=== PATIENT | male | born 1940 | race Caucasian/White ===

== ENCOUNTER 2017-03-08 10:14 | Emergency (ER) | payer MEDICARE, OTHER ==
[2017-03-08] MEDS ORDERED: TETANUS/DIPHTHERIA/PERTUSSIS 0.5 ML SYRINGE IM ONE ×2 (10:58→11:15)
--- NOTE | 2017-03-08 12:06 | XRAY Report ---
EXAM: RIGHT FOOT RADIOGRAPHY EXAM DATE: 03/08/2017 11:40 AM. CLINICAL HISTORY: Soft tissue injury. COMPARISON: None. TECHNIQUE: 3 views. FINDINGS: Bones: No fractures or bony destructive lesions. There are 4 screws in the distal fibula, unremarkab le. 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 No subluxations. Soft Tissues: In the lateral view, there is distal plantar foot soft tissue swelling. There is a smal l calcified dense focus abutting the plantar portion of the fifth metatarsal head, 2 mm; otherwise, n o soft tissue radiopaque foreign body or soft tissue swelling. IMPRESSION: 1. Distal plantar foot soft tissue swelling and a small calcified dense focus abutting the plantar po rtion of the fifth metatarsal head, 2 mm, probably a degenerative calcification; however, a small for eign body cannot be excluded, clinical correlation is recommended. 2. Otherwise, negative for soft tissue radiopaque foreign body or bony injury in the right foot radio graphy. [facility] Referring Provider Line: [phone] SITE ID: [id number]
--- NOTE | 2017-03-08 12:21 | ED Physician Documentation ---
History of Present Illness - Stated complaint Stated Complaint: RT FOOT PX - Chief complaint Chief Complaint: Ext Problem - History obtained from History obtained from: Patient - History of Present Illness Timing: How many days ago (several) Pain level max: 5 Pain level now: 4 - Additonal information Additional information: Patient is a 76-year-old gentleman who presents to the emergency department with 2-3 days worth of pain near the base of the second toe on the plantar aspect of the foot. Worse with walking, better with rest. Doesn't recall an injury Review of Systems Constitutional: denies: Fever, Chills Skin: denies: Rash Neurologic: denies: Focal weakness, Numbness PD PAST MEDICAL HISTORY - Past Medical History Cardiovascular: Hypertension HEENT: Other Musculoskeletal: Gout - Past Surgical History Past Surgical History: Yes Ortho: Arthroscopic surgery HEENT: Cataracts, Detached retina repair - Present Medications Home Medications: Ambulatory Orders Medication Instructions Recorded Confirmed Triamterene/Hydrochlorothiazid 1 each PO DAILY 04/18/13 03/08/17 [Triamterene-Hctz 37.5-25 mg Tb] Doxazosin [Cardura] 8 mg PO DAILY 03/27/14 03/08/17 Allopurinol 300 mg PO DAILY 03/08/17 03/08/17 Sulfamethox/Trimeth 800/160 1 each PO BID #14 tablet 03/08/17 [Bactrim Ds 800/160] - Allergies Allergies/Adverse Reactions: Allergies Allergy/AdvReac Type Severity Reaction Status Date / Time ciprofloxacin [From Cipro] Allergy Intermediate Edema Verified 03/08/17 10:30 ciprofloxacin HCl * Allergy Intermediate Edema Verified 03/08/17 10:30 [From Cipro] erythromycin lactobionate * Allergy Mild Emesis Verified 03/08/17 10:30 [From Erythrocin] lisinopril Allergy Edema Verified 03/08/17 10:30 - Social History Does the pt smoke?: No Smoking Status: Never smoker Does the pt drink ETOH?: No Does the pt have substance abuse?: No - Immunizations Immunizations are current?: Yes - POLST Patient has POLST: No PD ED PE NORMAL - Vitals Vital signs reviewed: Yes - General General: Alert and oriented X 3, No acute distress - HEENT HEENT: Moist mucous membranes - Derm Derm: Warm and dry - Extremities Extremities: Other (R foot - TTP 2nd MT head, plantar aspect. No FB visible, small puncture wound. 1x1cm erythema, swelling, no drainage. NVI) Results - Vitals Vitals: Vital Signs - 24 hr 03/08/17 03/08/17 10:27 12:44 Temperature 36.6 C 36.3 C L Heart Rate 63 66 Respiratory 18 18 Rate Blood Pressure 159/85 H 139/90 H O2 Saturation 97 97 Oxygen O2 Source Room air - Rads (name of study) R foot xray Radiology: Prelim report reviewed, EMP read contemporaneously, See rad report ( Distal plantar foot soft tissue swelling and a small calcified dense focus abutting the plantar portion of the fifth metatarsal head, 2 mm, probably a degenerative calcification; however, a small foreign body cannot be excluded, clinical correlation is recommended. 2. Otherwise, negative for soft tissue radiopaque foreign body or bony injury in the right foot radiography. ) PD MEDICAL DECISION MAKING - ED course Complexity details: reviewed results, re-evaluated patient, considered differential, d/w patient ED course: Patient is a 76-year-old male who presents to the emergency department with what appears to be slight cellulitis to the plantar aspect of the foot, near the base of the second toe. No visible foreign body, though does appear to have a small puncture wound. No drainage. No foreign body visible on x-ray. Will trial on antibiotics and close follow-up with his PCP. Will also have him soak the foot twice daily in warm water. Patient will return if he worsens. Patient counseled regarding signs and symptoms for which I believe and urgent re -evaluation would be necessary. Patient with good understanding of and agreement to plan and is comfortable going home at this time This document was made in part using voice recognition software. While efforts are made to proofread this document, sound alike and grammatical errors may occur. Departure - Departure Disposition: 01 Home, Self Care Clinical Impression: Cellulitis Qualifiers: Site of cellulitis: extremity Site of cellulitis of extremity: lower extremity Laterality: right Qualified Code(s): L03.115 - Cellulitis of right lower limb Condition: Good Instructions: ED Infec Skin Cellulitis Follow-Up: Oleg Hogan MD [Primary Care Provider] - Within 1 week Prescriptions: Sulfamethox/Trimeth 800/160 [Bactrim Ds 800/160] 1 each PO BID #14 tablet Comments: Return if you worsen. Take all antibiotics until gone. Soak the area in warm water 2-3 times daily. There is no foreign body on exam or xray today. Your blood pressure was elevated today on check in to the emergency department. This does not mean that you have hypertension, it is a common phenomenon to check into the emergency department and have elevated blood pressure. I recommend that you see your primary care physician within the week to have it rechecked when you're feeling better. Discharge Date/Time: 03/08/17 12:40
[2017-03-08 12:45] VITALS: BP 139/90
== END 2017-03-08 12:40 | disposition home or self-care (01) ==
LOC: ED 10:14
DX: L03.115 Cellulitis of right lower limb (principal); I10 Essential (primary) hypertension; M10.9 Gout, unspecified; Z23 Encounter for immunization
CPT/HCPCS: 90471; 99283

== ENCOUNTER 2017-05-25 16:42 | Emergency (ER) | payer MEDICARE, BC ==
[2017-05-25 16:52] VITALS: BP 169/97
[2017-05-25] MEDS ORDERED: HYDROcod/ACETAM 5/325 MG TABLET PO STA (17:21)
[2017-05-25] MEDS ORDERED: HYDROcod/ACETAM 5/325 MG TABLET ONE (17:28)
--- NOTE | 2017-05-25 17:48 | ED Physician Documentation ---
History of Present Illness - Stated complaint Stated Complaint: BACK/NECK PX - Chief complaint Chief Complaint: Back Pain - History obtained from History obtained from: Patient (Pt states that over the past 1-2 days he has had left upper back pain. No fevers, no trauma, worse with movement of his neck , does have some tingling to his upper left arm.) Review of Systems Constitutional: denies: Fever, Chills Ears: denies: Ear pain, Tinnitus/ringing Nose: denies: Congestion, Sinus pressure / pain Throat: denies: Sore throat Cardiac: denies: Chest pain / pressure, Palpitations Respiratory: denies: Dyspnea, Cough, Hemoptysis, Wheezing GI: denies: Nausea, Vomiting, Constipation, Diarrhea Skin: denies: Rash, Lesions Musculoskeletal: reports: Neck pain, Back pain, Other (tingling left upper arm) . denies: Extremity pain Neurologic: reports: Numbness. denies: Headache, LOC PD PAST MEDICAL HISTORY - Past Medical History Past Medical History: Yes Cardiovascular: Hypertension, High cholesterol HEENT: Other Musculoskeletal: Gout - Past Surgical History Past Surgical History: Yes Ortho: Arthroscopic surgery HEENT: Cataracts, Detached retina repair - Present Medications Home Medications: Ambulatory Orders Medication Instructions Recorded Confirmed Triamterene/Hydrochlorothiazid 1 each PO DAILY 04/18/13 05/25/17 [Triamterene-Hctz 37.5-25 mg Tb] Doxazosin [Cardura] 8 mg PO DAILY 03/27/14 05/25/17 Allopurinol 300 mg PO DAILY 03/08/17 05/25/17 Sulfamethox/Trimeth 800/160 1 each PO BID #14 tablet 03/08/17 05/25/17 [Bactrim Ds 800/160] Cyclobenzaprine [Flexeril] 10 mg PO TID PRN #20 tablet 05/25/17 Meloxicam [Mobic] 7.5 mg PO DAILY #30 tablet 05/25/17 Pravastatin Sodium 10 mg PO DAILY 05/25/17 05/25/17 - Allergies Allergies/Adverse Reactions: Allergies Allergy/AdvReac Type Severity Reaction Status Date / Time ciprofloxacin [From Cipro] Allergy Intermediate Edema Verified 03/08/17 10:30 ciprofloxacin HCl * Allergy Intermediate Edema Verified 03/08/17 10:30 [From Cipro] erythromycin lactobionate * Allergy Mild Emesis Verified 03/08/17 10:30 [From Erythrocin] lisinopril Allergy Edema Verified 03/08/17 10:30 - Social History Does the pt smoke?: No Smoking Status: Never smoker Does the pt drink ETOH?: No Does the pt have substance abuse?: No - Immunizations Immunizations are current?: Yes - POLST Patient has POLST: No PD ED PE NORMAL - Vitals Vital signs reviewed: Yes - General General: Alert and oriented X 3, No acute distress, Well developed/nourished - HEENT HEENT: Atraumatic, Moist mucous membranes - Neck Neck: Supple, no meningeal sign, No bony TTP, Other (+ sperlings to the left) - Cardiac Cardiac: RRR, No murmur - Respiratory Respiratory: No respiratory distress, Clear bilaterally - Derm Derm: Normal color, No rash - Extremities Extremities: Other (full ROM of left shoulder. ROM of left shoulder does not reporduce the pain. No TTP of left trap or rhomboids ) - Neuro Neuro: Alert and oriented X 3, No sensory deficit (left LE) Eye Opening: Spontaneous Motor: Obeys Commands Verbal: Oriented GCS Score: 15 - Psych Psych: Normal mood, Normal affect Results - Vitals Vitals: Vital Signs - 24 hr 05/25/17 16:46 Temperature 36.4 C L Heart Rate 71 Respiratory 17 Rate Blood Pressure 169/97 H O2 Saturation 97 Oxygen O2 Source Room air PD MEDICAL DECISION MAKING - ED course ED course: Pt with pos spurling maneuver. suspect cervical nerve impingement. discussed this with the pt. gave care instructions and return precautions. Doubt ACS. Departure - Departure Disposition: 01 Home, Self Care Clinical Impression: Cervical nerve root impingement Condition: Good Instructions: Neck Cervical Spine, Radiculopathy Cervical Follow-Up: Oleg Hogan MD [Primary Care Provider] - Prescriptions: Cyclobenzaprine [Flexeril] 10 mg PO TID PRN #20 tablet PRN Reason: Spasms Meloxicam [Mobic] 7.5 mg PO DAILY #30 tablet
== END 2017-05-25 18:01 | disposition home or self-care (01) ==
LOC: ED 16:42
DX: G56.80 Other specified mononeuropathies of unspecified upper limb (principal)
CPT/HCPCS: 99283; A9270

== ENCOUNTER 2018-10-10 11:16 | Emergency (ER) | payer MEDICARE, BC ==
[2018-10-10 11:23] VITALS: BP 142/72
--- NOTE | 2018-10-10 12:32 | ED Physician Documentation ---
History of Present Illness - Stated complaint Stated Complaint: TOE PAIN - Chief complaint Chief Complaint: Trauma Ext - History obtained from History obtained from: Patient - History of Present Illness Timing: How many days ago (2) Pain level max: 5 Pain level now: 3 - Additonal information Additional information: 78-year-old male with right toenail pain on the little toe along with bleeding for the past few days. Does not recall any injury. No fevers. Mild redness. Worse with palpation better with rest. Review of Systems Constitutional: denies: Fever, Chills Nose: denies: Rhinorrhea / runny nose, Congestion Respiratory: denies: Cough Skin: denies: Rash Musculoskeletal: denies: Neck pain, Back pain Neurologic: denies: Headache PD PAST MEDICAL HISTORY - Past Medical History Cardiovascular: Hypertension, High cholesterol HEENT: Other Musculoskeletal: Gout - Past Surgical History Past Surgical History: Yes Ortho: Arthroscopic surgery HEENT: Cataracts, Detached retina repair - Present Medications Home Medications: Ambulatory Orders Medication Instructions Recorded Confirmed Triamterene/Hydrochlorothiazid 1 each PO DAILY 04/18/13 05/25/17 [Triamterene-Hctz 37.5-25 mg Tb] Doxazosin [Cardura] 8 mg PO DAILY 03/27/14 05/25/17 Allopurinol 300 mg PO DAILY 03/08/17 05/25/17 Sulfamethox/Trimeth 800/160 1 each PO BID #14 tablet 03/08/17 05/25/17 [Bactrim Ds 800/160] Cyclobenzaprine [Flexeril] 10 mg PO TID PRN #20 tablet 05/25/17 Meloxicam [Mobic] 7.5 mg PO DAILY #30 tablet 05/25/17 Pravastatin Sodium 10 mg PO DAILY 05/25/17 05/25/17 Cephalexin [Keflex] 500 mg PO Q6H #28 capsule 10/10/18 Sulfamethox/Trimeth 800/160 1 each PO BID #14 tablet 10/10/18 [Bactrim Ds 800/160] - Allergies Allergies/Adverse Reactions: Allergies Allergy/AdvReac Type Severity Reaction Status Date / Time ciprofloxacin [From Cipro] Allergy Intermediate Edema Verified 10/10/18 11:24 ciprofloxacin HCl * Allergy Intermediate Edema Verified 10/10/18 11:24 [From Cipro] erythromycin lactobionate * Allergy Mild Emesis Verified 10/10/18 11:24 [From Erythrocin] lisinopril Allergy Edema Verified 10/10/18 11:24 - Social History Does the pt smoke?: No Smoking Status: Never smoker Does the pt drink ETOH?: No Does the pt have substance abuse?: No - Immunizations Immunizations are current?: Yes - POLST Patient has POLST: No PD ED PE NORMAL - Vitals Vital signs reviewed: Yes - General General: Alert and oriented X 3, No acute distress - Derm Derm: Warm and dry - Extremities Extremities: Other (Partially avulsed right fifth toenail. No active bleeding. Mild surrounding erythema going up the toe. No drainable abscess. Neur ovascular intact.) - Neuro Neuro: Alert and oriented X 3 Results - Vitals Vitals: Vital Signs - 24 hr 10/10/18 11:22 Temperature 37.0 C Heart Rate 74 Respiratory 18 Rate Blood Pressure 142/72 H O2 Saturation 96 Oxygen O2 Source Room air PD MEDICAL DECISION MAKING - ED course Complexity details: considered differential, d/w patient ED course: 78-year-old male with mild cellulitis of the right fifth toe as well as a partially avulsed toenail. He will trim the toenail at home and keep an eye on it. Prefers not to remove the toenail at this time. Will place on antibiotics. Patient counseled regarding signs and symptoms for which I believe and urgent re-evaluation would be necessary. Patient with good understanding of and agreement to plan and is comfortable going home at this time This document was made in part using voice recognition software. While efforts are made to proofread this document, sound alike and grammatical errors may occur. Departure - Departure Disposition: 01 Home, Self Care Clinical Impression: Avulsion of toenail of right foot Cellulitis Qualifiers: Site of cellulitis: extremity Site of cellulitis of extremity: toe Laterality: right Qualified Code(s): L03.031 - Cellulitis of right toe Condition: Good Instructions: ED Avulsion Nail Complete, ED Infec Skin Cellulitis Follow-Up: Oleg Hogan MD [Primary Care Provider] - Within 1 week Prescriptions: Cephalexin [Keflex] 500 mg PO Q6H #28 capsule Sulfamethox/Trimeth 800/160 [Bactrim Ds 800/160] 1 each PO BID #14 tablet Comments: Return if you worsen. This should improve over the next few days. Carefully trim your toenail when you get home. You may want to keep it covered as well.
== END 2018-10-10 12:39 | disposition home or self-care (01) ==
LOC: ED 11:16
DX: S91.214A Laceration without foreign body of right lesser toe(s) with damage to nail, initial encounter (principal); X58.XXXA Exposure to other specified factors, initial encounter; L03.031 Cellulitis of right toe; I10 Essential (primary) hypertension; E78.00 Pure hypercholesterolemia, unspecified
CPT/HCPCS: 99283

== ENCOUNTER 2018-10-16 05:50 | Emergency (ER) | payer MEDICARE, BC ==
[2018-10-16 06:47] LABS: BASOPHILS # (AUTO) 0.1 10^3/uL (0.0-0.1); BASOPHILS % (AUTO) 1.1 %; EOSINOPHILS # (AUTO) 0.6 10^3/uL (0.0-0.7); HGB - HEMOGLOBIN 14.9 g/dL (14.0-18.0); LYMPHOCYTES # (AUTO) 1.5 10^3/uL (1.5-3.5); MEAN CORPUSCULAR HEMOGLOBIN 31.2 pg (27.0-31.0); MEAN CORPUSCULAR HGB CONC 33.9 g/dL (32.0-36.0); MEAN CORPUSCULAR VOLUME 92.1 fL (80.0-94.0); MEAN PLATELET VOLUME 7.5 fL (7.4-11.4); MONOCYTES # (AUTO) 0.4 10^3/uL (0.0-1.0); MONOCYTES % (AUTO) 4.3 %; NEUTROPHILS # (AUTO) 6.8 10^3/uL (1.5-6.6); NEUTROPHILS % (AUTO) 72.6 %; PLT - PLATELET COUNT 214 10^3/uL (130-450); RED BLOOD COUNT 4.78 10^6/uL (4.70-6.10); RED CELL DISTRIBUTION WIDTH 14.3 % (12.0-15.0); WHITE BLOOD COUNT 9.4 x10^3/uL (4.8-10.8)
[2018-10-16 06:54] LABS: ALBUMIN 4.2 g/dL (3.2-5.5); ALBUMIN/GLOBULIN RATIO 1.5 (1.0-2.2); BILIRUBIN,TOTAL 0.9 mg/dL (0.2-1.0); CALCIUM 9.2 mg/dL (8.5-10.3); CREATININE 1.4 mg/dL (0.6-1.2)
--- NOTE | 2018-10-16 07:29 | ED Physician Documentation ---
PD HPI ABD PAIN - Stated complaint Stated Complaint: ABD PX - Chief complaint Chief Complaint: Abd Pain - History obtained from History obtained from: Patient - History of Present Illness Timing - onset: Last night Timing - duration: Hours Timing - details: Gradual onset Quality: Pain Location: Periumbilical Radiation: Other (does not radiate) Improved by: Other (no ameliorating factors) Worsened by: Other (no exacerbating factors) Associated symptoms: No: Fever, Nausea, Vomiting, Diarrhea, Constipation Similar symptoms before: Diagnosis (feels similar to abdominal discomfort he had when taking erythromycin) Review of Systems Constitutional: reports: Reviewed and negative Cardiac: reports: Reviewed and negative Respiratory: reports: Reviewed and negative GI: reports: Abdominal Pain. denies: Nausea, Vomiting, Constipation, Diarrhea PD PAST MEDICAL HISTORY - Past Medical History Past Medical History: Yes Cardiovascular: Hypertension, High cholesterol HEENT: Other Musculoskeletal: Gout - Past Surgical History Past Surgical History: Yes Ortho: Arthroscopic surgery HEENT: Cataracts, Detached retina repair - Present Medications Home Medications: Ambulatory Orders Medication Instructions Recorded Confirmed Triamterene/Hydrochlorothiazid 1 each PO DAILY 04/18/13 05/25/17 [Triamterene-Hctz 37.5-25 mg Tb] Doxazosin [Cardura] 8 mg PO DAILY 03/27/14 05/25/17 Allopurinol 300 mg PO DAILY 03/08/17 05/25/17 Sulfamethox/Trimeth 800/160 1 each PO BID #14 tablet 03/08/17 05/25/17 [Bactrim Ds 800/160] Cyclobenzaprine [Flexeril] 10 mg PO TID PRN #20 tablet 05/25/17 Meloxicam [Mobic] 7.5 mg PO DAILY #30 tablet 05/25/17 Pravastatin Sodium 10 mg PO DAILY 05/25/17 05/25/17 Cephalexin [Keflex] 500 mg PO Q6H #28 capsule 10/10/18 Sulfamethox/Trimeth 800/160 1 each PO BID #14 tablet 10/10/18 [Bactrim Ds 800/160] - Allergies Allergies/Adverse Reactions: Allergies Allergy/AdvReac Type Severity Reaction Status Date / Time ciprofloxacin [From Cipro] Allergy Intermediate Edema Verified 10/10/18 11:24 ciprofloxacin HCl * Allergy Intermediate Edema Verified 10/10/18 11:24 [From Cipro] erythromycin lactobionate * Allergy Mild Emesis Verified 10/10/18 11:24 [From Erythrocin] lisinopril Allergy Edema Verified 10/10/18 11:24 - Social History Does the pt smoke?: No Smoking Status: Former smoker Does the pt drink ETOH?: No Does the pt have substance abuse?: No - Immunizations Immunizations are current?: Yes - POLST Patient has POLST: No PD ED PE NORMAL - Vitals Vital signs reviewed: Yes - General General: Alert and oriented X 3, No acute distress, Well developed/nourished - HEENT HEENT: Moist mucous membranes - Cardiac Cardiac: RRR, No murmur - Respiratory Respiratory: No respiratory distress, Clear bilaterally - Abdomen Abdomen: Normal bowel sounds, Soft, Non tender, Non distended - Back Back: No CVA TTP - Derm Derm: Normal color, Warm and dry, No rash - Extremities Extremities: No edema Results - Vitals Vitals: Oxygen O2 Source Room air - Labs Labs: Laboratory Tests 10/16/18 10/16/18 06:42 06:42 WBC 9.4 RBC 4.78 Hgb 14.9 Hct 44.0 MCV 92.1 MCH 31.2 H MCHC 33.9 RDW 14.3 Plt Count 214 MPV 7.5 Neut # (Auto) 6.8 H Lymph # (Auto) 1.5 [place] # (Auto) 0.4 Eos # (Auto) 0.6 Baso # (Auto) 0.1 Absolute Nucleated RBC 0.01 Nucleated RBC % 0.1 Sodium 137 Potassium 3.8 Chloride 100 L Carbon Dioxide 27 Anion Gap 10.0 BUN 28 H Creatinine 1.4 H Estimated GFR (MDRD) 49 L Glucose 126 H Calcium 9.2 Total Bilirubin 0.9 AST 19 ALT 19 Alkaline Phosphatase 90 Total Protein 7.0 Albumin 4.2 Globulin 2.8 Albumin/Globulin Ratio 1.5 Lipase 36 PD MEDICAL DECISION MAKING - ED course Complexity details: reviewed results, re-evaluated patient, considered differential, d/w patient, d/w family ED course: On reevaluation, after Tests resulted, patient reports his symptoms have resolved. His toe appears normal, and patient reports that it feels completely normal to him. Because he feels strongly that the symptoms of his abdominal discomfort are similar to several years ago when they were attributed to side effect of erythromycin, and considering that his toe appears to have completely healed, it was mutually agreed that he can stop the antibiotics that were prescribed on the previous ER visit. also considered in differential diagnoses is biliary colic (US not performed at this time, as it would not change immediate management: symptoms resolved, unremarkable LFTs, afebrile, nontender), PUD/gastritis, intestinal ischemia, constipation, osbstruction. We discussed his abnormal bun/creatinine. No previous for comparison on [facility] records, but the levels are mildly elevated and thus can be compared to baseline by his PMd (had recent outpatient blood tests) and retesting as deemed appropriate. Departure - Departure Disposition: 01 Home, Self Care Clinical Impression: Abdominal pain Condition: Good Instructions: ED Abdominal Pain Unkn Cause Male Follow-Up: ELISEO CLEMONS MD [Primary Care Provider] - Comments: Your kidney function tests were abnormal on today's blood tests. I do not have any previous results for comparison, but the results are mildly elevated and do not need to be further investigated at this time. Contact your primary care physician to discuss these results and they can compare to your recent blood work and then advise whether further testing is needed. Discharge Date/Time: 10/16/18 08:06
[2018-10-16 08:03] VITALS: BP 140/70
== END 2018-10-16 08:06 | disposition home or self-care (01) ==
LOC: ED 05:50
DX: R10.9 Unspecified abdominal pain (principal); I10 Essential (primary) hypertension; Z87.891 Personal history of nicotine dependence
CPT/HCPCS: 36415; 80053; 83690; 85025; 99283

== ENCOUNTER 2020-07-09 02:18 | Emergency (ER) | payer MEDICARE, BC ==
[2020-07-09] MEDS ORDERED: diphenhydrAMINE 25 MG CAPSULE PO STA (02:50)
[2020-07-09] MEDS ORDERED: predniSONE 20 MG TABLET PO STA (02:50)
--- NOTE | 2020-07-09 02:53 | ED Physician Documentation ---
History of Present Illness - Stated complaint Stated Complaint: BILAT EYE SWELLING - Chief complaint Chief Complaint: Heent - History obtained from History obtained from: Patient - Additonal information Additional information: Emergency department chief complaint of swelling around bilateral eyes for the last few days. Patient states it started with a burning sensation around both of his eyes and some mild swelling. Patient states this is happened to him before, though he is not sure what causes it, and that it always goes down on its own. However, the patient states that the symptoms have grown steadily worse over the last few days. He states he has not had any symptoms anywhere elseonly around his eyes. He denies any swelling of his tongue or lips. No airway tightness or swelling. No difficulty breathing. No rash on his skin. Patient states he has chronic mild eczema on his bilateral upper eyelids, but that this is generally well controlled. Patient denies any other complaints at this time. He states he did take 25 mg of Benadryl several hours ago, but this does not seem to have done any good. Patient denies any exposure to anything new. He denies any new lotions, soaps, or other products on his face. No recent yardwork. No exposure to any new pets. No new foods or medications. Patient states he has been working in his wood shop, but states this is not unusual for him. Review of Systems Ten Systems: 10 systems reviewed and negative Constitutional: reports: Reviewed and negative Eyes: reports: Other (Edema.) Ears: reports: Reviewed and negative Nose: reports: Reviewed and negative Throat: reports: Reviewed and negative Cardiac: reports: Reviewed and negative Respiratory: reports: Reviewed and negative GI: reports: Reviewed and negative : reports: Reviewed and negative Skin: reports: Reviewed and negative Musculoskeletal: reports: Reviewed and negative Neurologic: reports: Reviewed and negative Psychiatric: reports: Reviewed and negative Endocrine: reports: Reviewed and negative Immunocompromised: reports: Reviewed and negative PD PAST MEDICAL HISTORY - Past Medical History Past Medical History: Yes Cardiovascular: Hypertension, High cholesterol HEENT: Other Musculoskeletal: Gout - Past Surgical History Past Surgical History: Yes Ortho: Arthroscopic surgery HEENT: Cataracts, Detached retina repair - Present Medications Home Medications: Ambulatory Orders Medication Instructions Recorded Confirmed Triamterene/Hydrochlorothiazid 1 each PO DAILY 04/18/13 07/09/20 [Triamterene-Hctz 37.5-25 mg Tb] Doxazosin [Cardura] 8 mg PO DAILY 03/27/14 07/09/20 allopurinoL [Allopurinol] 300 mg PO DAILY 03/08/17 07/09/20 Pravastatin Sodium 10 mg PO DAILY 05/25/17 07/09/20 Naphazoline HCl/Pheniramine 15 ml OP TID PRN #1 drops 07/09/20 [Naphcon-A Eye Drops] predniSONE [Deltasone] 60 mg PO DAILY 5 Days #15 tablet 07/09/20 - Allergies Allergies/Adverse Reactions: Allergies Allergy/AdvReac Type Severity Reaction Status Date / Time ciprofloxacin [From Cipro] Allergy Intermediate Edema Verified 07/09/20 02:41 ciprofloxacin HCl * Allergy Intermediate Edema Verified 07/09/20 02:41 [From Cipro] erythromycin lactobionate * Allergy Mild Emesis Verified 07/09/20 02:41 [From Erythrocin] lisinopril Allergy Edema Verified 07/09/20 02:41 - Social History Does the pt smoke?: No Smoking Status: Never smoker Does the pt drink ETOH?: No Does the pt have substance abuse?: No - Immunizations Immunizations are current?: Yes - POLST Patient has POLST: No PD ED PE NORMAL - Vitals Vital signs reviewed: Yes - General General: Alert and oriented X 3, No acute distress, Well developed/nourished - HEENT HEENT: Atraumatic, PERRL, EOMI, Moist mucous membranes, Other (Moderate periorbital edema on the right, Somewhat worse on the left. Moderate edema. No induration or streaking. Localized to periorbital area. No edema of lips. ) - Neck Neck: Supple, no meningeal sign - Respiratory Respiratory: No respiratory distress - Derm Derm: Normal color, Warm and dry, No rash (Erythema periorbitally.) - Extremities Extremities: No deformity - Neuro Neuro: Alert and oriented X 3 - Psych Psych: Normal mood, Normal affect Results - Vitals Vitals: Vital Signs - 24 hr 07/09/20 02:20 Temperature 36.0 C L Heart Rate 58 L Respiratory 16 Rate Blood Pressure 182/79 H O2 Saturation 97 Oxygen O2 Source Room air PD MEDICAL DECISION MAKING - ED course Complexity details: considered differential, d/w patient ED course: I discussed with the patient that at this point in time, he does not appear to have cellulitis, but an allergic reaction. His findings are very symmetrical, though slightly worse on the left. There is no induration or evidence of purulent collection to indicate an infectious process. Additionally, the patient has felt well otherwise and has been afebrile. It is not clear what the patient is reacting to. We have discussed symptomatic management with Benadryl and prednisone, both of which the patient has been given in the emergency department. We have also discussed putting cold packs on the eyes and applying allergy drops to try to help with some of the reaction though the patient's eyes themselves are not in discomfort. We have discussed that if he does not begin to notice any improvement after the next several days, he will need to pursue following up with an employment specialist. Departure - Departure Disposition: 01 Home, Self Care Clinical Impression: Allergic reaction Qualifiers: Encounter type: initial encounter Qualified Code(s): T78.40XA - Allergy, unspecified, initial encounter Condition: Stable Instructions: ED Allergic Reaction Local Other, ED Allergic Conjunctivitis Follow-Up: GURJIT ARANA MD [Physician No Access] - Prescriptions: predniSONE [Deltasone] 60 mg PO DAILY 5 Days #15 tablet Naphazoline HCl/Pheniramine [Naphcon-A Eye Drops] 15 ml OP TID PRN #1 drops PRN Reason: Allergy Symptoms Comments: It is not clear what is causing the reaction you are having. However, there is no evidence of a serious reaction at this time, in terms of anything that would be threatening to your life or leave long-term consequences. Generally, these sorts of reactions blow over on their own. The main issue is that the ongoing reaction raises concern that you were continuing to be exposed to something that your body does not like. It is not clear exactly what this is at this time, since all of these sorts of reactions look like, regardless of what you were exposed to. Please keep a detailed record of what you are doing and being exposed to on a daily basis in terms of food, hygienic products, chemicals, or other activities. You may use the medications prescribed, as well as Benadryl 25 to 50 mg every 4 hours. If you do not notice any improvement at all in the next several days, you should call the employment specialist, as recommended. Begin to have swelling in your mouth or throat, you should return to the emergency department immediately.
[2020-07-09 03:18] VITALS: BP 164/68
== END 2020-07-09 03:18 | disposition home or self-care (01) ==
LOC: ED 02:18
DX: T78.40XA Allergy, unspecified, initial encounter (principal); X58.XXXA Exposure to other specified factors, initial encounter; I10 Essential (primary) hypertension
CPT/HCPCS: 99282; 99284; A9270; J7512

== ENCOUNTER 2020-12-27 05:56 | Emergency (ER) | payer MEDICARE, BC ==
[2020-12-27 06:13] VITALS: BP 151/75
[2020-12-27] MEDS ORDERED: predniSONE 20 MG TABLET PO STA (06:37)
--- NOTE | 2020-12-27 06:42 | ED Physician Documentation ---
History of Present Illness - Stated complaint Stated Complaint: BILAT EYE SWELLING - Chief complaint Chief Complaint: Heent - History obtained from History obtained from: Patient - Additonal information Additional information: Patient comes emergency department chief complaint of bilateral eye swelling and itching of arms and hands for the last couple of days. Patient states that he has not done anything differently was not exposed to anything unusual. He does note that he has had some itching and tearing of his eyes for the last couple of weeks leading up to this, which he attributes to pollen. Patient states something similar to his current symptoms have been last year except it was even worse and that his eyes were swollen almost shut. Patient states that prednisone helped him a lot at that time. Patient is on a medication for angioedema and states he is not currently feeling as though he is having an angioedema flare. He denies any swelling in his mouth or throat. No difficulty breathing. Patient states that he has not noticed a rash per se, but that he has tiny "blisters" that develop on his fingers and hands when he scratches. Patient states he does not have any itching or rash anywhere else on his body and that only his face and distal upper extremities are affected. Patient states that his eyes were becoming puffier yesterday, but that this morning, he woke up and found swollen areas beneath his eyes and this is what prompted him to come in. No other complaints at this time. Review of Systems Ten Systems: 10 systems reviewed and negative Constitutional: reports: Reviewed and negative Eyes: reports: Reviewed and negative Ears: reports: Reviewed and negative Nose: reports: Reviewed and negative Throat: reports: Reviewed and negative Cardiac: reports: Reviewed and negative Respiratory: reports: Reviewed and negative GI: reports: Reviewed and negative : reports: Reviewed and negative Skin: reports: Other (swelling, itching) Musculoskeletal: reports: Reviewed and negative Neurologic: reports: Reviewed and negative Psychiatric: reports: Reviewed and negative Endocrine: reports: Reviewed and negative Immunocompromised: reports: Reviewed and negative PD PAST MEDICAL HISTORY - Past Medical History Past Medical History: Yes Cardiovascular: Hypertension, High cholesterol Respiratory: None Neuro: None Endocrine/Autoimmune: None GI: None : None HEENT: Other Psych: None Musculoskeletal: Gout Derm: None - Past Surgical History Past Surgical History: Yes Ortho: Arthroscopic surgery HEENT: Cataracts, Detached retina repair - Present Medications Home Medications: Ambulatory Orders Medication Instructions Recorded Confirmed Triamterene/Hydrochlorothiazid 1 each PO DAILY 04/18/13 12/27/20 [Triamterene-Hctz 37.5-25 mg Tb] Doxazosin [Cardura] 8 mg PO DAILY 03/27/14 12/27/20 allopurinoL [Allopurinol] 300 mg PO DAILY 03/08/17 12/27/20 Pravastatin Sodium 10 mg PO DAILY 05/25/17 12/27/20 Naphazoline HCl/Pheniramine 15 ml OP TID PRN #1 drops 07/09/20 12/27/20 [Naphcon-A Eye Drops] predniSONE [Deltasone] 60 mg PO DAILY 5 Days #15 tablet 12/27/20 - Allergies Allergies/Adverse Reactions: Allergies Allergy/AdvReac Type Severity Reaction Status Date / Time ciprofloxacin [From Cipro] Allergy Intermediate Edema Verified 12/27/20 06:34 ciprofloxacin HCl * Allergy Intermediate Edema Verified 12/27/20 06:34 [From Cipro] erythromycin lactobionate * Allergy Mild Emesis Verified 12/27/20 06:34 [From Erythrocin] lisinopril Allergy Edema Verified 12/27/20 06:34 - Social History Does the pt smoke?: No Smoking Status: Never smoker Does the pt drink ETOH?: No Does the pt have substance abuse?: No - Immunizations Immunizations are current?: Yes - POLST Patient has POLST: No PD ED PE NORMAL - Vitals Vital signs reviewed: Yes - General General: Alert and oriented X 3, No acute distress - HEENT HEENT: Atraumatic, PERRL, EOMI, Moist mucous membranes, Other (Edema without induration periorbitally, collecting dependently in infraorbital region bilaterally. Findings are symmetrical. No soft tissue swelling otherwise. No urticaria. No oropharyngeal edema.) - Neck Neck: Supple, no meningeal sign - Cardiac Cardiac: RRR, No murmur - Respiratory Respiratory: No respiratory distress, Clear bilaterally - Derm Derm: Normal color, Warm and dry, Other (No erythema. No distinct rash. Patient does have a very tiny papular/vesicular Raised areas scattered on his fingers and groups. No discoloration. No crusting.) - Extremities Extremities: No deformity - Neuro Neuro: Alert and oriented X 3 - Psych Psych: Normal mood, Normal affect Results - Vitals Vitals: Vital Signs - 24 hr 12/27/20 06:04 Temperature 36.9 C Heart Rate 69 Respiratory 15 Rate Blood Pressure 151/75 H O2 Saturation 97 Oxygen O2 Source Room air PD MEDICAL DECISION MAKING - ED course Complexity details: considered differential, d/w patient ED course: I discussed with the patient that he appears to be having a reaction to something, most likely external, and that is difficult to say what. I suspect environmental allergies, given the fact the patient had some symptoms for a couple of weeks leading up to the current flare, and has had trouble with pollen before. The patient took a single Benadryl this morning but otherwise has not taken any antiallergy medication since symptoms started. I will put the patient on prednisone and have given him first dose here. We have discussed that he may take Benadryl if he would like. We have also discussed other symptomatic management at home and the usual indications for return. Departure - Departure Disposition: 01 Home, Self Care Clinical Impression: Allergic reaction Qualifiers: Encounter type: initial encounter Qualified Code(s): T78.40XA - Allergy, unspecified, initial encounter Condition: Stable Instructions: ED Allergic Reaction General Other Prescriptions: predniSONE [Deltasone] 60 mg PO DAILY 5 Days #15 tablet Comments: Please take the prednisone as prescribed until your symptoms improve. You may stop the course early if your symptoms resolve. You may take Benadryl along with this for extra treatment of allergy if you would like. Please consider following up with an cloth shrinker to further evaluate the reason for your allergic reactions. If you develop any swelling of your mouth or throat please return to the emergency department.
== END 2020-12-27 06:51 | disposition home or self-care (01) ==
LOC: ED 05:56
DX: T78.40XA Allergy, unspecified, initial encounter (principal); I10 Essential (primary) hypertension
CPT/HCPCS: 99282; 99283; J7512

== ENCOUNTER 2021-02-11 23:58 | Emergency (ER) | payer MEDICARE, BC ==
--- NOTE | 2021-02-12 01:06 | ED Physician Documentation ---
History of Present Illness - Stated complaint Stated Complaint: BILAT EYE SWELLING - Chief complaint Chief Complaint: Heent - History obtained from History obtained from: Patient - History of Present Illness Timing: How many weeks ago (1) Pain level max: 0 Pain level now: 0 Improved by: no ameliorating factors Worsened by: no exacerbating factors - Additonal information Additional information: c/o bilateral periorbital swelling x 1 week, worsening since earlier today. he denies injury. He had similar episode in July and again in December of this year, which responded to prednisone. He has been taking benadryl without noticeable improvement Review of Systems Constitutional: denies: Fever Eyes: denies: Loss of vision, Decreased vision, Photophobia, Discharge, Irritation Nose: denies: Congestion, Sinus pressure / pain PD PAST MEDICAL HISTORY - Past Medical History Cardiovascular: Hypertension, High cholesterol Respiratory: None Neuro: None Endocrine/Autoimmune: None GI: None : None HEENT: Other Psych: None Musculoskeletal: Gout Derm: None - Past Surgical History Past Surgical History: Yes Ortho: Arthroscopic surgery HEENT: Cataracts, Detached retina repair - Present Medications Home Medications: Ambulatory Orders Medication Instructions Recorded Confirmed Triamterene/Hydrochlorothiazid 1 each PO DAILY 04/18/13 02/12/21 [Triamterene-Hctz 37.5-25 mg Tb] Doxazosin [Cardura] 8 mg PO DAILY 03/27/14 02/12/21 allopurinoL [Allopurinol] 300 mg PO DAILY 03/08/17 02/12/21 Pravastatin Sodium 10 mg PO DAILY 05/25/17 02/12/21 predniSONE [Deltasone] 60 mg PO DAILY 4 Days #12 tablet 02/12/21 - Allergies Allergies/Adverse Reactions: Allergies Allergy/AdvReac Type Severity Reaction Status Date / Time ciprofloxacin [From Cipro] Allergy Intermediate Edema Verified 12/27/20 06:34 ciprofloxacin HCl * Allergy Intermediate Edema Verified 12/27/20 06:34 [From Cipro] erythromycin lactobionate * Allergy Mild Emesis Verified 12/27/20 06:34 [From Erythrocin] lisinopril Allergy Edema Verified 12/27/20 06:34 - Social History Does the pt smoke?: No Smoking Status: Never smoker Does the pt drink ETOH?: No Does the pt have substance abuse?: No - Immunizations Immunizations are current?: Yes - POLST Patient has POLST: No PD ED PE NORMAL - Vitals Vital signs reviewed: Yes - General General: Alert and oriented X 3, No acute distress, Well developed/nourished - HEENT HEENT: PERRL, EOMI, Other (bilateral periorbital swelling with mild erythema, R>L. normal conjunctive. no discharge) Results - Vitals Vitals: Oxygen O2 Source Room air PD MEDICAL DECISION MAKING - ED course Complexity details: considered differential, d/w patient ED course: atraumatic bilateral periorbital edema x 1 week, worsening over the course of the day today. h/o same symptoms in July and December, with both episodes responding (resolving) with PO prednisone. as with previous episodes, allergic etiology is suspected although there is no apparent trigger for these episodes. No elements of H+P to suggest infectious etiology (afebrile, no pain, no fluctuance, not hot to touch, no discharge). He is given a dose of prednisone in ED and d/c with rx for same. Departure - Departure Disposition: 01 Home, Self Care Clinical Impression: Periorbital swelling Condition: Good Instructions: ED Allergic Reaction General Other Follow-Up: Oleg Hogan MD [Primary Care Provider] - Within 1 week Prescriptions: predniSONE [Deltasone] 60 mg PO DAILY 4 Days #12 tablet Discharge Date/Time: 02/12/21 01:23
[2021-02-12] MEDS ORDERED: predniSONE 20 MG TABLET PO STA (01:14)
[2021-02-12 01:23] VITALS: BP 148/106
== END 2021-02-12 01:23 | disposition home or self-care (01) ==
LOC: ED 23:58
DX: H05.223 Edema of bilateral orbit (principal)
CPT/HCPCS: 99282; 99283; J7512

== ENCOUNTER 2021-07-11 11:08 | Emergency (ER) | payer MEDICARE, BC ==
[2021-07-11 11:15] VITALS: BP 148/84
[2021-07-11] MEDS ORDERED: RABIES VACCINE 2.5 UNIT SYRINGE IM ONE (11:30)
[2021-07-11] MEDS ORDERED: RABIES IMMUNE GLOBULIN 300 UNITS/2 ML IM STA (11:30)
--- NOTE | 2021-07-11 11:34 | ED Physician Documentation ---
History of Present Illness - Stated complaint Stated Complaint: BAT ENCOUNTER REQUESTING INFO FOR RABIES - Chief complaint Chief Complaint: General - History obtained from History obtained from: Patient - Additonal information Additional information: There was a bat in his house yesterday, it was a left lower object. He was never asleep with it. He caught it in a net and then handled it through towel and threw it outside were evidently it later flew away as it was not there later. He is never been immunized against rabies. Review of Systems Constitutional: reports: Reviewed and negative Cardiac: reports: Reviewed and negative Respiratory: reports: Reviewed and negative PD PAST MEDICAL HISTORY - Past Medical History Cardiovascular: Hypertension, High cholesterol Respiratory: None Neuro: None Endocrine/Autoimmune: None GI: None : None HEENT: Other Psych: None Musculoskeletal: Gout Derm: None - Past Surgical History Past Surgical History: Yes Ortho: Arthroscopic surgery HEENT: Cataracts, Detached retina repair - Present Medications Home Medications: Ambulatory Orders Medication Instructions Recorded Confirmed Triamterene/Hydrochlorothiazid 1 each PO DAILY 04/18/13 07/11/21 [Triamterene-Hctz 37.5-25 mg Tb] Doxazosin [Cardura] 8 mg PO DAILY 03/27/14 07/11/21 allopurinoL [Allopurinol] 300 mg PO DAILY 03/08/17 07/11/21 Pravastatin Sodium 10 mg PO DAILY 05/25/17 07/11/21 Rabies Vaccine [Rabavert] 2.5 unit IM ONCE #3 07/11/21 - Allergies Allergies/Adverse Reactions: Allergies Allergy/AdvReac Type Severity Reaction Status Date / Time ciprofloxacin [From Cipro] Allergy Intermediate Edema Verified 07/11/21 11:15 ciprofloxacin HCl * Allergy Intermediate Edema Verified 07/11/21 11:15 [From Cipro] erythromycin lactobionate * Allergy Mild Emesis Verified 07/11/21 11:15 [From Erythrocin] lisinopril Allergy Edema Verified 07/11/21 11:15 - Social History Does the pt smoke?: No Smoking Status: Never smoker Does the pt drink ETOH?: No Does the pt have substance abuse?: No - Immunizations Immunizations are current?: Yes - POLST Patient has POLST: No PD ED PE NORMAL - Vitals Vital signs reviewed: Yes - General General: Alert and oriented X 3, No acute distress - Neuro Neuro: Alert and oriented X 3, Normal speech - Psych Psych: Normal mood, Normal affect Results - Vitals Vitals: Vital Signs - 24 hr 07/11/21 11:11 Temperature 36.4 C L Heart Rate 74 Respiratory 16 Rate Blood Pressure 148/84 H O2 Saturation 96 Oxygen O2 Source Room air PD MEDICAL DECISION MAKING - ED course ED course: We discussed that since he was never asleep in the room with the bat and he was not clearly bitten it probably was a judgment call as to whether or not he received primary rabies vaccination and after discussion he would like to go forward with it. Departure - Departure Disposition: Home, Self Care Clinical Impression: Need for post exposure prophylaxis for rabies Condition: Good Record reviewed to determine appropriate education?: Yes Prescriptions: Rabies Vaccine [Rabavert] 2.5 unit IM ONCE #3 Comments: Repeat rabies vaccine on Friday, next Friday, and the Friday after. You can come back to the ER, or follow the instructions on the attached informational sheet. [facility] in [place] may also carry it, I am writing a prescription but you should call them to confirm. Forms: Rabies Vaccine Series (MAC)
== END 2021-07-11 12:13 | disposition home or self-care (01) ==
LOC: ED 11:08
DX: I10 Essential (primary) hypertension (principal); Z29.14 Encounter for prophylactic rabies immune globulin; Z23 Encounter for immunization; Z71.85 Encounter for immunization safety counseling
CPT/HCPCS: 90471; 96372; 99281; 99283

== ENCOUNTER 2021-07-14 10:41 | Emergency (ER) | payer MEDICARE, BC ==
[2021-07-14 11:01] VITALS: BP 141/81
--- NOTE | 2021-07-14 11:12 | ED Physician Documentation ---
History of Present Illness - Stated complaint Stated Complaint: ANIMAL EXPOSURE - Chief complaint Chief Complaint: General - History obtained from History obtained from: Patient - History of Present Illness Timing: How many days ago (3) Quality: he is here for 2nd rabies vaccine in series. Here 3 days ago. Review of Systems Constitutional: denies: Fever, Chills Skin: denies: Rash PD PAST MEDICAL HISTORY - Past Medical History Cardiovascular: Hypertension, High cholesterol Respiratory: None Neuro: None Endocrine/Autoimmune: None GI: None : None HEENT: Other Psych: None Musculoskeletal: Gout Derm: None - Past Surgical History Past Surgical History: Yes Ortho: Arthroscopic surgery HEENT: Cataracts, Detached retina repair - Present Medications Home Medications: Ambulatory Orders Medication Instructions Recorded Confirmed Triamterene/Hydrochlorothiazid 1 each PO DAILY 04/18/13 07/11/21 [Triamterene-Hctz 37.5-25 mg Tb] Doxazosin [Cardura] 8 mg PO DAILY 03/27/14 07/11/21 allopurinoL [Allopurinol] 300 mg PO DAILY 03/08/17 07/11/21 Pravastatin Sodium 10 mg PO DAILY 05/25/17 07/11/21 Rabies Vaccine [Rabavert] 2.5 unit IM ONCE #3 07/11/21 - Allergies Allergies/Adverse Reactions: Allergies Allergy/AdvReac Type Severity Reaction Status Date / Time ciprofloxacin [From Cipro] Allergy Intermediate Edema Verified 07/14/21 11:01 ciprofloxacin HCl * Allergy Intermediate Edema Verified 07/14/21 11:01 [From Cipro] erythromycin lactobionate * Allergy Mild Emesis Verified 07/14/21 11:01 [From Erythrocin] lisinopril Allergy Edema Verified 07/14/21 11:01 - Social History Does the pt smoke?: No Smoking Status: Never smoker Does the pt drink ETOH?: No Does the pt have substance abuse?: No - Immunizations Immunizations are current?: Yes - POLST Patient has POLST: No PD ED PE NORMAL - Vitals Vital signs reviewed: Yes - General General: Alert and oriented X 3, No acute distress, Well developed/nourished - Derm Derm: Normal color, Warm and dry - Extremities Extremities: Other (no redness nor swelling at first vaccine site. ) Results - Vitals Vitals: Vital Signs - 24 hr 07/14/21 07/14/21 10:58 12:23 Temperature 36.6 C Heart Rate 66 80 Respiratory 15 14 Rate Blood Pressure 141/81 H O2 Saturation 98 98 Oxygen O2 Source Room air PD MEDICAL DECISION MAKING - ED course Complexity details: considered differential (here for 2nd rabies vaccine in series. First one 3 days ago. No problems from it. ), d/w patient Departure - Departure Disposition: 01 Home, Self Care Clinical Impression: Need for post exposure prophylaxis for rabies Condition: Stable Record reviewed to determine appropriate education?: Yes Comments: Your second rabies vaccine in the series. Refer to your instructions from the first visit for subsequent dosing times for the third and fourth dose. Discharge Date/Time: 07/14/21 12:23
[2021-07-14] MEDS ORDERED: RABIES VACCINE 2.5 UNIT SYRINGE IM ONE (11:48)
== END 2021-07-14 12:23 | disposition home or self-care (01) ==
LOC: ED 10:41
DX: Z23 Encounter for immunization (principal)
CPT/HCPCS: 90471

== ENCOUNTER 2023-11-30 08:44 | Emergency (ER) | payer BC, MEDICARE ==
[2023-11-30 08:59] VITALS: BP 162/67; O2SAT 99
--- NOTE | 2023-11-30 10:57 | ED Physician Documentation ---
PD HPI SKIN - Stated complaint Stated Complaint: ALLERGIC REACTION - Chief complaint Chief Complaint: Allergic Rx - History obtained from History obtained from: Patient - Additional information Additional information: The patient comes to the emergency department chief complaint of swelling around his eyes. 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 He states that he gets redness and itching over his forehead and around his eyes and his eyelids swell up. If he does not get it treated early with steroids, he ends up with his eyes swelled shut for a week. He states he can get through it but he really has things that he needs to do this week and does not want to get to that point. He states his eyes themselves are little bit itchy but otherwise, no other symptoms or complaints. He states he has never had swelling in his throat when this happens. PD PAST MEDICAL HISTORY - Past Medical History Cardiovascular: Hypertension, High cholesterol Respiratory: None Neuro: None Endocrine/Autoimmune: None GI: None : None HEENT: Other Psych: None Musculoskeletal: Gout Derm: None - Past Surgical History Past Surgical History: Yes Ortho: Arthroscopic surgery HEENT: Cataracts, Detached retina repair - Present Medications Home Medications: Ambulatory Orders Medication Instructions Recorded Confirmed Triamterene/Hydrochlorothiazid 1 each PO DAILY 04/18/13 07/11/21 [Triamterene-Hctz 37.5-25 mg Tb] Doxazosin [Cardura] 8 mg PO DAILY 03/27/14 07/11/21 allopurinoL [Allopurinol] 300 mg PO DAILY 03/08/17 07/11/21 Pravastatin Sodium 10 mg PO DAILY 05/25/17 07/11/21 Rabies Vaccine [Rabavert] 2.5 unit IM ONCE #3 07/11/21 predniSONE [Deltasone] 10 mg PO [id number] #42 tab 11/30/23 - Allergies Allergies/Adverse Reactions: Allergies Allergy/AdvReac Type Severity Reaction Status Date / Time ciprofloxacin [From Cipro] Allergy Intermediate Edema Verified 11/30/23 08:48 ciprofloxacin HCl * Allergy Intermediate Edema Verified 11/30/23 08:48 [From Cipro] erythromycin lactobionate * Allergy Mild Emesis Verified 11/30/23 08:48 [From Erythrocin] lisinopril Allergy Edema Verified 11/30/23 08:48 - Social History Does the pt smoke?: No Smoking Status: Never smoker Does the pt drink ETOH?: No Does the pt have substance abuse?: No - Immunizations Immunizations are current?: Yes - POLST Patient has POLST: No PD ED PE NORMAL - Vitals Vital signs reviewed: Yes - General General: Alert and oriented X 3, No acute distress, Well developed/nourished - HEENT HEENT: Atraumatic, EOMI, Moist mucous membranes, Other (Mild erythema and puffiness around bilateral periorbital areas/eyelids. No conjunctival injection. No drainage. No oropharyngeal edema.) - Neck Neck: Supple, no meningeal sign - Respiratory Respiratory: No respiratory distress - Derm Derm: Normal color, Warm and dry, No rash - Extremities Extremities: No deformity - Neuro Neuro: Alert and oriented X 3 - Psych Psych: Normal mood, Normal affect Results - Vitals Vitals: Vital Signs - 24 hr 11/30/23 08:48 Temperature 36.6 C Heart Rate 65 Respiratory 16 Rate Blood Pressure 162/67 H O2 Saturation 99 Oxygen O2 Source Room air PD Medical Decision Making - ED course Complexity details: considered differential, d/w patient ED course: The patient did not have any evidence of anaphylaxis, and angioedema flareup, or severe allergic reaction. I started him on prednisone since this is worked for these flareups before. We have discussed home management of the symptoms as well as the usual indications for return. Departure - Departure Disposition: 01 Home, Self Care Clinical Impression: Allergic reaction Qualifiers: Encounter type: initial encounter Qualified Code(s): T78.40XA - Allergy, unspecified, initial encounter Condition: Stable Instructions: ED Allergic Reaction Local Other Prescriptions: predniSONE [Deltasone] 10 mg PO [id number] #42 tab Comments: Your prescription for prednisone has been electronically transmitted to the [facility] in [place]. Please pick that up today. You been given your first dose in the emergency department so your next dose will be due tomorrow. Forms: PCP List Discharge Date/Time: 11/30/23 11:11
[2023-11-30] MEDS: predniSONE 20 MG TABLET PO STA (11:07)
== END 2023-11-30 11:11 | disposition home or self-care (01) ==
LOC: ED 08:44
DX: T78.40XA Allergy, unspecified, initial encounter (principal); X58.XXXA Exposure to other specified factors, initial encounter; I10 Essential (primary) hypertension; E78.00 Pure hypercholesterolemia, unspecified; Z79.899 Other long term (current) drug therapy
CPT/HCPCS: 99283; 99284; J7512

== ENCOUNTER 2024-05-12 02:19 | Observation (INO) ==
[2024-05-12] MEDS ORDERED: iohexoL-300 100 ML VIAL ONE (02:31)
[2024-05-12 02:35] LABS: BASOPHILS # (AUTO) 0.1 10^3/uL (0.0-0.1); BASOPHILS % (AUTO) 0.8 %; EOSINOPHILS # (AUTO) 0.7 10^3/uL (0.0-0.7); EOSINOPHILS % (AUTO) 8.9 %; HCT - HEMATOCRIT 42.1 % (42.0-52.0); HGB - HEMOGLOBIN 13.8 g/dL (14.0-18.0); LYMPHOCYTES # (AUTO) 2.2 10^3/uL (1.5-3.5); LYMPHOCYTES % (AUTO) 27.6 %; MEAN CORPUSCULAR HEMOGLOBIN 30.9 pg (27.0-31.0); MEAN CORPUSCULAR HGB CONC 32.8 g/dL (32.0-36.0); MEAN CORPUSCULAR VOLUME 94.2 fL (80.0-94.0); MEAN PLATELET VOLUME 9.3 fL (7.4-11.4); MONOCYTES # (AUTO) 0.5 10^3/uL (0.0-1.0); MONOCYTES % (AUTO) 6.4 %; NEUTROPHILS # (AUTO) 4.4 10^3/uL (1.5-6.6); PLT - PLATELET COUNT 227 10^3/uL (130-450); RED BLOOD COUNT 4.47 10^6/uL (4.70-6.10); RED CELL DISTRIBUTION WIDTH 13.3 % (12.0-15.0); WHITE BLOOD COUNT 7.8 x10^3/uL (4.8-10.8)
[2024-05-12 02:49] LABS: ALBUMIN 3.8 g/dL (3.2-5.5); ALBUMIN/GLOBULIN RATIO 2.2 (1.0-2.2); BILIRUBIN,TOTAL 0.4 mg/dL (0.2-1.0); CALCIUM 8.9 mg/dL (8.5-10.3); CREATININE 1.2 mg/dL (0.6-1.3); POTASSIUM 3.1 mmol/L (3.5-4.5); TOTAL PROTEIN 5.5 g/dL (6.4-8.9)
[2024-05-12] MEDS: LIDOCAINE VISCOUS 2% 15 ML UDC MM STA (03:20)
[2024-05-12] MEDS: MAG HYDROX/AL HYDROX/SIMETH 30 ML UDC PO STA (03:21)
[2024-05-12] MEDS: GI COCKTAIL 120 ML BOTTLE PO STA (03:24)
[2024-05-12] MEDS: iohexoL-300 100 ML VIAL IVP ONE (03:27)
[2024-05-12] MEDS ORDERED: SODIUM CHLORIDE FLUSH 0.9% 10 ML SYRINGE IVP PRN (04:08)
--- NOTE | 2024-05-12 04:11 | ED Physician Documentation ---
History of Present Illness Stated complaint Stated Complaint: GEN WEAKNESS Chief complaint Chief Complaint: Neuro History obtained from History obtained from: Patient and EMS Additonal information Additional information: The patient is brought to the emergency department via EMS for chief complaint of right sided weakness and just feeling "off". The symptoms started about 30 minutes prior to arrival. The patient was laying in bed when he suddenly began to feel "strange". He cannot really clarify further what he felt but states he just felt "off". He states that he tried to move his right leg and felt very heavy like he could not move it. He then noticed that his right arm was also weak. The patient states that he did not have any trouble speaking or swallowing as far as he could tell. He had to crawl to the door to unlock it for the medics because he just did not feel strong enough to stand up. He states that he did not have any shortness of breath or chest pain. He could feel that the episode was improving slightly by the time the medics got there and now, he feels like it has passed entirely. He states nothing like this is ever happened to him before. He has a history of hypertension but denies diabetes or smoking. He denies recent illness. No other complaints at this time. Meds/Allgy Home Medications Ambulatory Orders Medication Instructions Recorded Confirmed triamterene 37.5 1 ea PO DAILY 04/18/13 04/22/24 mg-hydrochlorothiazide 25 mg tablet doxazosin 4 mg tablet 8 mg PO DAILY 03/27/14 04/22/24 allopurinol 300 mg tablet 300 mg PO DAILY 03/08/17 04/22/24 pravastatin 20 mg tablet 10 mg PO DAILY 05/25/17 04/22/24 Allergies Allergies Allergy/AdvReac Type Severity Reaction Status Date / Time ciprofloxacin (From Cipro) Allergy Intermediate Edema Verified 05/12/24 02:23 ciprofloxacin HCl * (From Allergy Intermediate Edema Verified 05/12/24 02:23 Cipro) erythromycin lactobionate * Allergy Mild Emesis Verified 05/12/24 02:23 (From Erythrocin) lisinopril Allergy Edema Verified 05/12/24 02:23 [facility] Social History Social History Smoking Status: Never smoker Do you vape?: No Relationship: Do you feel safe in your home environment?: Yes Suffered physical, verbal, emotional, or financial abuse?: No History of Abuse: No Frequency: Occasional POLST Patient has POLST: No Exam Constitutional normal general appearance and no apparent distress HENMT normocephalic, head/scalp atraumatic, external nose normal and oral mucous membranes normal Eyes EOMs intact bilaterally Neck/C-Spine visual inspection normal and supple Respiratory breath sounds equal bilaterally, normal respiratory effort and clear to auscultation bilaterally Cardiovascular normal heart rate noted, regular rhythm noted and no edema Gastrointestinal abdomen normal to inspection, abdomen soft to palpation, nontender to palpation and nondistended Genitourinary no CVA tenderness Extremities normal to inspection 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, no movement abnormality noted, no focal motor deficit noted, no sensory deficits noted, gait normal and coordination normal Alert Psychiatry mental status grossly normal Skin skin color normal Results Vitals Vitals: Vital Signs - 24 hr 05/12/24 02:21 05/12/24 02:23 05/12/24 03:24 Temperature 36.9 C Temperature Source Tympanic Pulse Rate 65 58 L Respiratory Rate 18 16 Blood Pressure 176/91 H 179/75 H O2 Saturation 97 96 O2 Source Room air Room air Pain Intensity 0 0 0 05/12/24 03:58 Temperature Temperature Source Pulse Rate 59 L Respiratory Rate 16 Blood Pressure 166/79 H O2 Saturation 96 O2 Source Room air Pain Intensity 0 Oxygen O2 Source Room air EKG (time done) 0234: EKG releavant findings:: EKG personally interpreted by author of this note. Relevant findings are: Rate: Rate (enter#) (58) Rhythm: NSR [place]: Normal Intervals: Prolonged [place] QRS: QRS normal Ischemia: Normal ST segments Compare to prior EKG: Old EKG unavailable Computer interpretation: Agree with computer Labs Labs: Laboratory Tests 05/12/24 02:20 WBC 7.8 RBC 4.47 L Hgb 13.8 L Hct 42.1 MCV 94.2 H MCH 30.9 MCHC 32.8 RDW 13.3 Plt Count 227 MPV 9.3 Neut # (Auto) 4.4 Lymph # (Auto) 2.2 [place] # (Auto) 0.5 Eos # (Auto) 0.7 Baso # (Auto) 0.1 Absolute Nucleated RBC 0.00 Nucleated RBC % 0.0 Sodium 142 Potassium 3.1 L Chloride 105 Carbon Dioxide 29 Anion Gap 8.0 BUN 26 H Creatinine 1.2 Estimated GFR (MDRD) 58 L Glucose 130 H Calcium 8.9 Total Bilirubin 0.4 AST 11 ALT 10 Alkaline Phosphatase 91 Total Protein 5.5 L Albumin 3.8 Globulin 1.7 L Albumin/Globulin Ratio 2.2 Lipase 36 Rads (name of study) CT head: Relevant Findings:: Final report received and See rad report (No intracranial hemorrhage, No acute findings) CT angiogram head and neck: Relevant Findings:: Final report received and See rad report (Multifocal vasculopathy without large vessel occlusion or hemodynamically significant stenosis) PD Medical Decision Making ED course Complexity details: reviewed old records, reviewed results, re-evaluated patient, considered differential and d/w patient ED course: The patient was worked up with labs, EKG, and CT/CTA of the head and neck. Workups showed generalized vasculopathy but no particular occlusions or stenosis of the large vessels. There was an area of possible ischemia in the right parietal occipital region and MRI was recommended. This region would not correlate with the patient's right sided weakness but I did feel that the patient should be admitted for observation and MRI and echo. I spoke with Dr. Persaud, the on-call telehospitalist, and he agreed to admit the patient to his service. The patient was given an aspirin here in the ED and I spoke with him and his regarding the plan. They are agreeable to this. The patient has spoken with Dr. Persaud as well. Discharge Plan Discharge Patient Disposition: [facility] DC/Xfer Condition: Serious Clinical Impression: TIA (transient ischemic attack) Prescriptions: No Action triamterene-hydrochlorothiazid 1 EACH tablet 1 ea PO DAILY doxazosin 4 MG tablet 8 mg PO DAILY allopurinol 300 MG tablet 300 mg PO DAILY pravastatin 20 MG tablet 10 mg PO DAILY Print Language: Arabic Stand Alone Forms: PCP List
[2024-05-12] MEDS ORDERED: ACETAMINOPHEN 325 MG TABLET PO PRN (04:13)
[2024-05-12] MEDS ORDERED: ONDANSETRON 4 MG/2 ML VIAL IVP PRN (04:13)
[2024-05-12] MEDS ORDERED: polyethylene glycoL 3350 17 GM PACKET PO PRN (04:13)
[2024-05-12] MEDS: ASPIRIN 325 MG TABLET PO STA (04:26)
--- NOTE | 2024-05-12 04:40 | HISTORY & PHYSICAL EXAMINATION ---
Chief Complaint Chief Complaint Chief Complaint: Right leg weakness History of Present Illness Admitted From Admitted From:: ED History Obtained From Records Reviewed: EMR History obtained from: Patient, , and ED staff Exam Limitations: Telemedicine History of Present Illness HPI Comment/Other: 83YOM c HTN, HLD, and gout presenting with complaint of transient RLE weakness. Patient was in bed watching tv when he felt his right leg go weak. He tried to get out of bed and could not put weight on his right leg. Patient felt worried and called EMS. Within 20mins patient reports his RLE weakness resolved and he was back to baseline. He states no headache, vision changes, chest pain, SOB, palpitation, n/v/d, trauma, or new medications. Patient reports no prior episode of similar event. Here in the ED, patient underwent CT head imaging that was negative. He was given a dose of asa and statin. ED staff subsequently reached out to Hospital Medicine for assistance with further medical management. [facility] Social History Social History Smoking Status: Never smoker Do you vape?: No Relationship: Do you feel safe in your home environment?: Yes Suffered physical, verbal, emotional, or financial abuse?: No History of Abuse: No Frequency: Occasional POLST Patient has POLST: No Meds/Allgy Home Medications Ambulatory Orders Medication Instructions Recorded Confirmed triamterene 37.5 1 ea PO DAILY 04/18/13 05/12/24 mg-hydrochlorothiazide 25 mg tablet doxazosin 4 mg tablet 8 mg PO DAILY 03/27/14 05/12/24 allopurinol 300 mg tablet 300 mg PO DAILY 03/08/17 05/12/24 pravastatin 20 mg tablet 10 mg PO DAILY 05/25/17 05/12/24 Allergies Allergies Allergy/AdvReac Type Severity Reaction Status Date / Time ciprofloxacin (From Cipro) Allergy Intermediate Edema Verified 05/12/24 02:23 ciprofloxacin HCl * (From Allergy Intermediate Edema Verified 05/12/24 02:23 Cipro) erythromycin lactobionate * Allergy Mild Emesis Verified 05/12/24 02:23 (From Erythrocin) lisinopril Allergy Edema Verified 05/12/24 02:23 Exam Constitutional normal general appearance and no apparent distress HENMT normocephalic and external nose normal Neck/C-Spine visual inspection normal Respiratory breath sounds equal bilaterally, normal respiratory effort and clear to auscultation bilaterally per ED staff Cardiovascular normal heart rate noted and regular rhythm noted per ED staff Gastrointestinal abdomen normal to inspection, abdomen soft to palpation, nontender to palpation and nondistended per ED staff Extremities normal to inspection 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 stroke rule out. neuro checks. telemonitoring. lipid panel and hgba1c for secondary prevention. manage with asa and Plavix initially and consider asa daily after 21 days tele monitor. Pt eval. fall precaution. aspiration precaution. (2) HTN (hypertension): Plan: cover. restart home antihypertensive. monitor blood pressure with repeat vital checks (3) HLD (hyperlipidemia): Plan: managed. restart home pravstatin. followup lipid panel for therapeutic status (4) Gout: Plan: stable. no flare. continue home allopurinol Plan asa and plavix. mri to r/o stroke. Lab Results Lab results reviewed: Yes 05/12/24 02:20 05/12/24 02:20 Diagnostic Imaging Results Diagnostic Imaging Results: positive Final report reviewed EKG Results EKG Interpreted Independently: Yes Core Measures Anticipated LOS I expect patient to be DC'd or transferred within 96 hours.: Yes Issues Hospital Issues and Management Plan: The patient consented to receive this telemedicine service, which I performed via live two-way audiovisual equipment. The patient is at ([facility]) and I am physically in [facility]. A nurse assisted me in the visit. Full code SCDs Observation Carlos Persaud DO Internal Medicine [employer] Tele Internal Medicine Nurse DVT/VTE - Prophylaxis VTE/DVT Device ordered at admit?: Yes Stroke - Rehab Assessment Rehab services assessment to be ordered?: Yes Telemedicine Consult Details Provider Location & Consult Time Telemedicine consultation conducted via videoconferencing?: Yes List names and roles of persons who participated in consult:: Patient, , ED staff Telemedicine provider location:: [facility] Time Telemedicine consult began:: 04:02 Time Telemedicine consult completed:: 04:50
[2024-05-12 04:48] LABS: CHOLESTEROL 144 mg/dL; HDL CHOLESTEROL 36 mg/dL; LDL CHOLESTEROL,CALCULATED 59 mg/dL; LDL/HDL RATIO 1.6 (<3.6); TRIGLYCERIDES 247 mg/dL; VLDL CHOLESTEROL 49 mg/dL
[2024-05-12] MEDS ORDERED: ATORVASTATIN 10 MG TABLET PO SCH (05:00)
[2024-05-12] MEDS ORDERED: POTASSIUM CHLORIDE 20 MEQ/15 ML UDC PO SCH (05:00)
[2024-05-12] MEDS: CLOPIDOGREL 75 MG TABLET PO SCH (06:27)
[2024-05-12 08:34] LABS: ESTIMATED AVERAGE GLUCOSE 117 mg/dL (70-100); HEMOGLOBIN A1c% 5.7 % (4.27-6.07)
--- NOTE | 2024-05-12 08:42 | CT Report ---
PROCEDURE: CT Head WO INDICATIONS: R side weakness TECHNIQUE: Noncontrast 4.5 mm thick angled axial sections acquired from the foramen magnum to the vertex. For r adiation dose reduction, the following was used: automated exposure control, adjustment of mA and/or kV according to patient size. COMPARISON: None. FINDINGS: Image quality: Excellent. CSF spaces: Basal cisterns are patent. No extra-axial fluid collections. Ventricles are symmetric in size and shape. Brain: No midline shift. No intracranial masses or hemorrhage. Small area of chondromalacia seen in the right parietal region. Hypodensities in the subcortical and periventricular white matter are mos t commonly seen in setting of chronic microvascular ischemic changes. Age-related cerebral and cerebe llar volume loss is seen. Intracranial vascular calcifications are noted in the internal carotid ling amber. Skull and face: Calvarium and visualized facial bones are intact, without suspicious lesions. Sinuses: Visualized sinuses and mastoids are clear. IMPRESSION: 1.No acute intracranial pathology. If there is continued concern for recent stroke, MRI could be perf ormed for further evaluation. 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 3.Mild chronic microvascular ischemic changes and generalized parenchymal volume loss. There is no significant discrepancy when compared with the preliminary overnight report. Reviewed by: Zenon Ojeda MD on 05/12/2024 8:40 AM [facility] Approved by: Zenon Ojeda MD on 05/12/2024 8:40 AM [facility] Station ID: [id number]
--- NOTE | 2024-05-12 08:48 | CT Report ---
PROCEDURE: CT Angio Head/Neck INDICATIONS: R side weakness TECHNIQUE: After the administration of intravenous contrast, 1 mm thick sections acquired from the aortic arch t hrough the [place] of [place]. 3-dimensional vglshui-uinfhwmli-bxtghqkjuv (MIP) and/or volume renderin g reformats were acquired of the central intracranial vasculature and neck separately. For radiation dose reduction, the following was used: automated exposure control, adjustment of mA and/or kV acco rding to patient size. CONTRAST: Omni 300, 80mls COMPARISON: CT head 05/12/2024. FINDINGS: Image quality: Diagnostic. HEAD CT: CSF Spaces: Basal cisterns are patent. No extra-axial fluid collections. Ventricles are normal in size and shape. Brain: No acute abnormality is seen for scanning technique. Chronic cephalization the right parieta l region. Skull and face: Calvarium and visualized facial bones appear intact, without suspicious lesions. Sinuses: Partial opacification of the right sphenoid sinus. The remaining visualized paranasal sinuse s and the mastoid are cells are clear. HEAD CT ANGIOGRAPHY: Anterior circulation: Intracranial internal carotid arteries demonstrate atherosclerotic calcificati ons without significant stenosis.. The flow within the paired anterior cerebral arteries is normal a nd symmetric. The flow within the middle cerebral arteries is normal and symmetric. The anterior co mmunicating artery is seen. No aneurysms are seen. Posterior circulation: Visualized portions of the vertebral arteries demonstrate normal caliber, and join to form a normal appearing basilar artery. Flow within the posterior cerebral arteries is norm al and symmetric. The posterior communicating artery. No aneurysms are seen. NECK CT ANGIOGRAPHY: Carotid system: The great vessels demonstrate a conventional anatomy as they arise from the aortic a rch. Proximal arch vessels are tortuous. The origins of the common carotid arteries appear patent. The common carotid arteries demonstrate normal caliber and courses. The bifurcation regions demonstr ate minimal atherosclerotic calcifications without hemodynamically significant stenosis. The interna l carotid arteries demonstrate normal calibers and courses. Posterior circulation: The origins of the vertebral arteries both appear widely patent. The more blandon perior extracranial portions of both vertebral arteries also demonstrate normal courses and calibers. They join to form a normal appearing basilar artery. Soft tissues: Visualized neck soft tissues demonstrate no suspicious abnormalities. Bones: No suspicious bony lesions. Multilevel degenerative changes are seen in the included spine. IMPRESSION: No significant intracranial arterial abnormality is seen. No significant abnormality is seen within the arteries of the neck. The estimate of stenosis included in the report of the imaging study was calculated using the NASCET method There is no significant discrepancy when compared with the preliminary overnight report. Reviewed by: Zenon Ojeda MD on 05/12/2024 8:47 AM PST Approved by: Zenon Ojeda MD on 05/12/2024 8:47 AM PST Station ID: [id number]
[2024-05-12] MEDS ORDERED: TRIAMTERENE HYDROCHLOROTHIAZID PO SCH (09:00)
[2024-05-12] MEDS: SODIUM CHLORIDE FLUSH 0.9% 10 ML SYRINGE IVP SCH (09:03)
[2024-05-12] MEDS: DOXAZOSIN 4 MG TABLET PO SCH (09:03)
[2024-05-12] MEDS: hydroCHLOROthiazide 25 MG TABLET PO SCH (09:03)
[2024-05-12] MEDS: PRAVASTATIN 10 MG TABLET PO SCH (09:03)
[2024-05-12] MEDS: allopurinoL 100 MG TABLET PO SCH (09:03)
[2024-05-12] MEDS: POTASSIUM CHLORIDE 20 MEQ TABLET PO ONE (09:07)
--- NOTE | 2024-05-12 10:39 | Discharge Summary ---
Discharge Summary Admit Date: 05/12/24 Discharge Date: 05/12/24 Discharging Provider: Dwight Craig NP Code Status: Attempt Resuscitation DIAGNOSES Admission Diagnoses: TIA Hypertension HLD Gout Discharge Diagnoses with Status of Each Condition: TIAresolved Hypertensionchronic Hyper lipidchronic Goutchronic HPI History of Present Illness: 83-year-old male with history of hypertension, hyperlipidemia, gout. He was watching TV in bed when his right leg started to become weak. He attempted to stand, but his leg would not support any weight. He denied headache, vision change, chest pain, shortness of breath, palpitation. His symptoms resolved within 20 minutes. In the ER, he underwent CT head which was negative. He was placed in observation for [facility] Hospital Course: He was held in observation until he could undergo MRI brain and echocardiogram. These were both completed, I have not seen the results of these. I have encouraged him to follow-up with his PCP regarding this. Given that his symptoms resolved prior to him even arriving at the ER, I feel it is safe to discharge him home on statin and [employer] Allergies Allergy/AdvReac Type Severity Reaction Status Date / Time ciprofloxacin (From Cipro) Allergy Intermediate Edema Verified 05/12/24 02:23 ciprofloxacin HCl * (From Allergy Intermediate Edema Verified 05/12/24 02:23 Cipro) erythromycin lactobionate * Allergy Mild Emesis Verified 05/12/24 02:23 (From Erythrocin) lisinopril Allergy Edema Verified 05/12/24 02:23 MEDICATIONS Ambulatory Orders Medication Instructions Recorded Confirmed triamterene 37.5 1 ea PO DAILY 04/18/13 05/12/24 mg-hydrochlorothiazide 25 mg tablet allopurinol 300 mg tablet 300 mg PO DAILY 03/08/17 05/12/24 aspirin 81 mg tablet,delayed 81 mg PO DAILY 30 days #30 tabs 05/12/24 release clopidogrel 75 mg tablet 75 mg PO DAILY 30 days #30 tabs 05/12/24 doxazosin 8 mg tablet (Cardura) 8 mg PO DAILY 30 days #30 tabs 05/12/24 05/12/24 hydrochlorothiazide 25 mg tablet 25 mg PO DAILY 30 days #30 tabs 05/12/24 omalizumab 150 mg/mL subcutaneous 300 mg subcut Q28D 05/12/24 05/12/24 syringe (Xolair) pravastatin 10 mg tablet 10 mg PO DAILY 05/12/24 05/12/24 triamcinolone acetonide 0.1 % 1 applic topical BID 05/12/24 05/12/24 topical cream PHYSICAL EXAM AT DISCHARGE General Appearance: positive No acute distress Eyes Bilateral: positive Normal inspection ENT: positive ENT inspection nml Neck: positive Nml inspection Respiratory: positive Chest non-tender and No respiratory distress Cardiovascular: positive Regular rate & rhythm Peripheral Pulses: positive 2+ Abdomen: positive Non-tender Skin: positive Color nml Extremities: positive Non-tender Neurologic/Psychiatric: positive Oriented x3 LABS 05/12/24 02:20 05/12/24 02:20 DIAGNOSTIC IMAGING Diagnostic Imaging Results: Final report reviewed Diagnostic Imaging Results Comments: 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, no acute pathology CTA head/neck negative for acute infarct EKG NSR SEPSIS Current Stage of Sepsis: Ruled out FOLLOW UP Follow Up: With PCP TIME SPENT Time Spent in Discharge (Minutes): 25 Discharge Plan Discharge Patient Disposition: Home, Self Care Condition: Serious Medically Cleared Date:: 05/12/24 Prescriptions: New clopidogrel 75 mg Tablet 75 mg PO DAILY 30 Days Qty: 30 0RF aspirin 81 mg Tablet,Delayed Release (Dr/Ec) 81 mg PO DAILY 30 Days Qty: 30 0RF hydrochlorothiazide 25 mg Tablet 25 mg PO DAILY 30 Days Qty: 30 0RF Continued triamterene-hydrochlorothiazid 1 EACH tablet 1 ea PO DAILY allopurinol 300 MG tablet 300 mg PO DAILY pravastatin 10 mg tablet 10 mg PO DAILY triamcinolone acetonide 0.1 % cream 1 applic TOPICAL BID Patient Comments: apply TO CHEST AND ARMS twice a day for 2 weeks NOT for FACIAL OR... (REFER TO PRESCRIPTION NOTES). Xolair 150 mg/mL syringe 300 mg SUBCUT Q28D doxazosin [Cardura] 8 mg tablet 8 mg PO DAILY 30 Days Qty: 30 0RF Diet: Regular Health Concerns: You are a 83-year-old male who came in after experiencing right leg weakness while watching TV which resolved. We held you in observation for what is called a transient ischemic attack. We performed echocardiogram and MRI of your brain to assess for any actual continuing brain damage or cardiac disturbance that could cause a stroke.I am sending you home on aspirin and Plavix, which will help prevent stroke. I would encourage you to follow-up with your primary care provider regarding any ongoing changes in your medication regimen. I would also like you to follow-up with them regarding your hypertension Plan of Treatment: Start taking aspirin/Plavix Follow-up with PCP regarding medication changes and to follow-up high blood pressure Follow-up with PCP regarding results of your echocardiogram and MRI Print Language: Liberian Patient Instructions: TIA Stand Alone Forms: PCP List
--- NOTE | 2024-05-12 10:42 | PHARMACY PROGRESS NOTE ---
Best Possible Medication History Admit Date and Time: 05/12/24 0408 Processed by: Pharmacy (Medication reconciliation completed by retail pharmacy merchandiser, Zoila) Medications reviewed in ED?: No Medication History completed: Yes Patient Interview: Completed Secondary Source(s): Spouse/Significant other and Insurance records [facility] Statement: As the person ultimately responsible for medication therapy, providers are able to order a medication from an existing home medication list in [facility] via the "Reconcile Routine" prior to Confirmation of that medication by program support assistant. Such practice is discouraged except when the physician, in their clinical judgment, deems that a medical need exists for a medication without regard to previous use.
[2024-05-12 18:34] VITALS: O2SAT 98
[2024-05-13] MEDS ORDERED: ASPIRIN EC 81 MG TABLET PO SCH (09:00)
--- NOTE | 2024-05-13 15:52 | MRI Report ---
PROCEDURE: MRI Brain WO INDICATIONS: r/o stroke TECHNIQUE: Noncontrast axial T1 spin echo, axial T2 fast spin echo, sagittal and axial FLAIR, coronal T2 fast sp in echo, axial gradient echo, axial diffusion and ADC through the brain. COMPARISON: CT head, CTA head and neck 05/12/2024 FINDINGS: Image quality: Excellent. CSF Spaces: Basal cisterns are patent. No extra-axial fluid collections. Ventricles are normal in size and shape. Brain: No intracranial masses or hemorrhage. Hancock/white matter interface is normal. Brainstem appe ars normal. Diffusion-weighted images demonstrate punctate area of hyperintensity within the left co candace radiata also demonstrating hypointense signal on ADC. Old right parietal infarct.. Normal intra vascular flow voids are present. Minimal appearance of periventricular and subcortical white matter hyperintensities. Skull and face: Calvarium has normal marrow signal. Orbits appear normal. Sinuses: Sinuses demonstrate scattered areas of mucosal thickening without fluid level. IMPRESSION: Punctate area of restricted diffusion with correlated change on ADC most suggestive of small focus of acute/subacute lacunar ischemia. Reviewed by: Maddie Grady MD on 05/13/2024 3:50 PM PST Approved by: Maddie Grady MD on 05/13/2024 3:50 PM PST Station ID: [id number]
== END 2024-05-12 18:30 | disposition home or self-care (01) ==
LOC: ED 02:19 → MS2 02:19
PROVIDERS: ADMIT Internal Medicine; ATTEND Internal Medicine
DX: R94.31 Abnormal electrocardiogram [ECG] [EKG]; G45.9 Transient cerebral ischemic attack, unspecified; I10 Essential (primary) hypertension; M10.9 Gout, unspecified; E78.5 Hyperlipidemia, unspecified; Z79.899 Other long term (current) drug therapy; Z79.82 Long term (current) use of aspirin